=== PATIENT | male | born 1970 | race Caucasian/White ===

== ENCOUNTER 2016-03-25 15:05 | Outpatient (CLI) | payer OTHER | END 2016-03-25 15:06 | disposition home or self-care (01) | DX: G47.30 Sleep apnea, unspecified (principal); G47.8 Other sleep disorders; R06.83 Snoring; R51 Headache; G47.10 Hypersomnia, unspecified ==

== ENCOUNTER 2016-04-22 19:34 | Outpatient (CLI) | payer OTHER | END 2016-04-22 19:35 | disposition home or self-care (01) | DX: G47.33 Obstructive sleep apnea (adult) (pediatric) (principal) ==

== ENCOUNTER 2016-05-01 08:45 | Outpatient (CLI) | payer OTHER | END 2016-05-01 08:46 | disposition home or self-care (01) | DX: G47.33 Obstructive sleep apnea (adult) (pediatric) (principal) ==

== ENCOUNTER 2016-10-25 18:48 | Emergency (ER) | payer OTHER ==
[2016-10-25] MEDS ORDERED: ACETAMINOPHEN 325 MG TABLET PO STA (20:40)
--- NOTE | 2016-10-25 20:45 | ED Physician Documentation ---
History of Present Illness - Stated complaint Stated Complaint: NUMBNESS/ TINGLING LEFT ARM - Chief complaint Chief Complaint: General - History obtained from History obtained from: Patient - History of Present Illness Timing: Today, How many hours ago (4) Pain level max: 3 Pain level now: 2 Improved by: nothing Worsened by: nothing - Additonal information Additional information: Patient is a 45-year-old male who presents to the emergency department with left upper extremity pain earlier today, started approximately 4:30 PM today when he was doing the dishes. [place] a tightness and warmth in the upper part of the left upper extremity, then spread to the entire extremity then resolved. Entire episode lasted approximately 5 minutes. Was not accompanied by chest pain, shortness of breath, nausea, vomiting, dizziness. States has had a low- grade headache over the past week, rates this as a 2 out of 10 at max. Currently 1 out of 10. Denies any injuries. Denies any focal numbness or tingling. No trouble with balance. No trouble with speaking or vision. Has not had prior symptoms similarly. Review of Systems Ten Systems: 10 systems reviewed and negative Constitutional: denies: Fever, Chills Ears: denies: Ear pain Nose: denies: Rhinorrhea / runny nose, Congestion Throat: denies: Sore throat Cardiac: denies: Chest pain / pressure, Palpitations, Calf pain Respiratory: denies: Dyspnea, Cough GI: denies: Abdominal Pain, Nausea, Vomiting, Diarrhea Skin: denies: Rash Musculoskeletal: denies: Neck pain, Back pain Neurologic: denies: Focal weakness, Numbness, Headache PD PAST MEDICAL HISTORY - Past Medical History Past Medical History: No - Past Surgical History Past Surgical History: Yes - Present Medications Home Medications: Ambulatory Orders Medication Instructions Recorded Confirmed No Known Home Medications [No 10/25/16 10/25/16 Known Home Medications] - Allergies Allergies/Adverse Reactions: Allergies Allergy/AdvReac Type Severity Reaction Status Date / Time No Known Drug Allergies Allergy Verified 12/21/13 19:15 - Social History Does the pt smoke?: Yes Smoking Status: Former smoker Does the pt drink ETOH?: Yes Does the pt have substance abuse?: No - Immunizations Immunizations are current?: Yes - POLST Patient has POLST: No PD ED PE NORMAL - Vitals Vital signs reviewed: Yes - General General: Alert and oriented X 3, No acute distress - HEENT HEENT: Atraumatic, PERRL, EOMI, Ears normal, Moist mucous membranes, Pharynx benign - Neck Neck: Supple, no meningeal sign - Cardiac Cardiac: RRR - Respiratory Respiratory: No respiratory distress, Clear bilaterally - Abdomen Abdomen: Soft, Non tender, Non distended - Derm Derm: Warm and dry, No rash - Extremities Extremities: No edema, No calf tenderness / cord - Neuro Neuro: Alert and oriented X 3, 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, No motor deficit, No sensory deficit, Normal speech - Psych Psych: Normal mood, Normal affect - Free text exam Free text exam: NIHSS 0 Results - Vitals Vitals: Vital Signs - 24 hr 10/25/16 10/25/16 10/25/16 18:56 21:40 22:45 Temperature 36.9 C Heart Rate 79 67 78 Respiratory 14 16 16 Rate Blood Pressure 133/81 H 114/77 115/66 O2 Saturation 100 99 100 Oxygen O2 Source Room air - EKG (time done) 2053 Rate: Rate (enter#) (71) Rhythm: NSR [place]: Normal Intervals: Normal CO QRS: Normal Ischemia: Normal ST segments - Labs Labs: Laboratory Tests 10/25/16 10/25/16 10/25/16 20:47 20:47 20:47 WBC 6.2 RBC 4.77 Hgb 15.1 Hct 43.6 MCV 91.3 MCH 31.6 H MCHC 34.6 RDW 12.6 Plt Count 189 MPV 8.0 Neut # 3.4 Lymph # 1.9 [place] # 0.5 Eos # 0.3 Baso # 0.0 Absolute Nucleated RBC 0.00 Nucleated RBCs 0.0 Sodium 139 Potassium 4.0 Chloride 103 Carbon Dioxide 28 Anion Gap 8.0 BUN 14 Creatinine 0.7 Estimated GFR (MDRD) 123 Glucose 91 Calcium 9.3 Total Bilirubin 0.5 AST 20 ALT 23 Alkaline Phosphatase 60 Troponin I < 0.04 Total Protein 7.1 Albumin 4.4 Globulin 2.7 Albumin/Globulin Ratio 1.6 Lipase 27 10/25/16 22:18 WBC RBC Hgb Hct MCV MCH MCHC RDW Plt Count MPV Neut # Lymph # [place] # Eos # Baso # Absolute Nucleated RBC Nucleated RBCs Sodium Potassium Chloride Carbon Dioxide Anion Gap BUN Creatinine Estimated GFR (MDRD) Glucose Calcium Total Bilirubin AST ALT Alkaline Phosphatase Troponin I < 0.04 Total Protein Albumin Globulin Albumin/Globulin Ratio Lipase - Rads (name of study) cxr Radiology: Prelim report reviewed, EMP read contemporaneously, See rad report ( normal) PD MEDICAL DECISION MAKING - ED course Complexity details: reviewed results, re-evaluated patient, considered differential (No ST elevation [place], no aortic dissection, no PE, no tension pneumothorax, no aortic aneurysm), d/w patient, d/w family ED course: Patient is a 45-year-old male who presents to the emergency department with left upper extremity paresthesias earlier tonight. No focal weakness. No speech difficulties. No evidence of stroke. No evidence of cardiac etiology. Normal exam here. NIH stroke scale of 0. We will have him follow-up with his PCP for further evaluation and care. Patient counseled regarding signs and symptoms for which I believe and urgent re-evaluation would be necessary. Patient with good understanding of and agreement to plan and is comfortable going home at this time This document was made in part using voice recognition software. While efforts are made to proofread this document, sound alike and grammatical errors may occur. Patient also had a mild headache that resolved with Tylenol. No evidence of brain tumor, intracranial hemorrhage, subarachnoid hemorrhage. Head CT held at this time after discussion with patient. Departure - Departure Disposition: 01 Home, Self Care Clinical Impression: Paresthesia Condition: Good Instructions: ED Paraesthesias Follow-Up: Ariella Fitzgerald PA [Primary Care Provider] - Within 1 week Comments: Return if you worsen. The cause of your symptoms is unclear today. Discharge Date/Time: 10/25/16 22:52
[2016-10-25] MEDS ORDERED: ACETAMINOPHEN 325 MG TABLET PO ONE (20:47)
[2016-10-25 21:04] LABS: BASOPHILS % (AUTO) 0.5 %; EOSINOPHILS # (AUTO) 0.3 10^3/uL (0.0-0.7); EOSINOPHILS % (AUTO) 4.9 %; HCT - HEMATOCRIT 43.6 % (42.0-52.0); HGB - HEMOGLOBIN 15.1 g/dL (14.0-18.0); LYMPHOCYTES # (AUTO) 1.9 10^3/uL (1.5-3.5); MEAN CORPUSCULAR HEMOGLOBIN 31.6 pg (27.0-31.0); MEAN CORPUSCULAR HGB CONC 34.6 g/dL (32.0-36.0); MEAN CORPUSCULAR VOLUME 91.3 fL (80.0-94.0); MONOCYTES # (AUTO) 0.5 10^3/uL (0.0-1.0); MONOCYTES % (AUTO) 8.4 %; NEUTROPHILS # (AUTO) 3.4 10^3/uL (1.5-6.6); NEUTROPHILS % (AUTO) 55.2 %; RED BLOOD COUNT 4.77 10^6/uL (4.70-6.10); RED CELL DISTRIBUTION WIDTH 12.6 % (12.0-15.0); UNCORRECTED WHITE BLOOD COUNT 6.2 x10^3/uL; WHITE BLOOD COUNT 6.2 x10^3/uL (4.8-10.8)
[2016-10-25 21:11] LABS: ALBUMIN/GLOBULIN RATIO 1.6 (1.0-2.2); BILIRUBIN,TOTAL 0.5 mg/dL (0.2-1.0); CALCIUM 9.3 mg/dL (8.5-10.3); CREATININE 0.7 mg/dL (0.6-1.2); TOTAL PROTEIN 7.1 g/dL (6.7-8.2)
--- NOTE | 2016-10-25 21:44 | XRAY Preliminary Report ---
Exam: XR Chest 1 View IMPRESSION: Normal single view chest. [facility] SITE ID: [id number]
--- NOTE | 2016-10-25 21:47 | XRAY Report ---
EXAM: CHEST RADIOGRAPHY EXAM DATE: 10/25/2016 09:07 PM. CLINICAL HISTORY: Chest/L arm pain. COMPARISON: None. TECHNIQUE: 1 view. FINDINGS: Lungs/Pleura: No focal opacities evident. No pleural effusion. No pneumothorax. Mediastinum: Within exam limitations, cardiomediastinal contour is normal. Other: None. IMPRESSION: Normal single view chest. [facility] Referring Provider Line: [phone] SITE ID: [id number]
[2016-10-25 22:52] VITALS: BP 115/66
== END 2016-10-25 22:52 | disposition home or self-care (01) ==
LOC: ED 18:48
DX: R20.2 Paresthesia of skin (principal); M79.602 Pain in left arm; R51 Headache; Z87.891 Personal history of nicotine dependence
CPT/HCPCS: 36415; 71010; 80053; 83690; 84484; 85025; 93005; 99283; 99284; A9270

== ENCOUNTER 2017-09-14 13:13 | Emergency (ER) | payer BC, OTHER ==
[2017-09-14 13:25] VITALS: BP 130/73
--- NOTE | 2017-09-14 13:54 | ED Physician Documentation ---
PD HPI ABD PAIN - Stated complaint Stated Complaint: ABD PX - Chief complaint Chief Complaint: Abd Pain - History obtained from History obtained from: Patient - History of Present Illness Timing - onset: Other (He had a few episodes of diarrhea last night and some sweats last night and this morning developed constant right lower quadrant pain that radiates a little bit to the back and is associated with very mild nausea. He has never had this before. No history of abdominal surgeries. No chills or fevers.) Review of Systems Ten Systems: 10 systems reviewed and negative Constitutional: reports: Sweats. denies: Fever, Chills Throat: denies: Sore throat Cardiac: denies: Chest pain / pressure, Palpitations Respiratory: denies: Dyspnea, Cough PD PAST MEDICAL HISTORY - Past Medical History Past Medical History: No - Past Surgical History Past Surgical History: Yes - Present Medications Home Medications: Ambulatory Orders Medication Instructions Recorded Confirmed Lactobacillus Acidophilus 1 each PO 09/14/17 [Acidophilus] Multivitamin [Multiple Vitamins] 09/14/17 - Allergies Allergies/Adverse Reactions: Allergies Allergy/AdvReac Type Severity Reaction Status Date / Time No Known Drug Allergies Allergy Verified 09/14/17 13:26 - Living Situation Living Situation: reports: With spouse/s.o. - Social History Does the pt smoke?: Yes Smoking Status: Former smoker Does the pt drink ETOH?: Yes Does the pt have substance abuse?: No - Family History Family history: reports: Non contributory - Immunizations Immunizations are current?: Yes - POLST Patient has POLST: No PD ED PE NORMAL - Vitals Vital signs reviewed: Yes - General General: Alert and oriented X 3, No acute distress - HEENT HEENT: PERRL, EOMI - Neck Neck: Supple, no meningeal sign, No bony TTP - Cardiac Cardiac: RRR, No murmur - Respiratory Respiratory: No respiratory distress, Clear bilaterally - Abdomen Abdomen: Normal bowel sounds, Soft, Other (Focal tenderness in the right lower quadrant with positive Rovsing sign) - Back Back: No CVA TTP, No spinal TTP - Derm Derm: Normal color, Warm and dry - Extremities Extremities: No edema, No calf tenderness / cord - Neuro Neuro: Alert and oriented X 3, Normal speech Results - Vitals Vitals: Vital Signs - 24 hr 09/14/17 13:22 Temperature 36.7 C Heart Rate 71 Respiratory 16 Rate Blood Pressure 130/73 O2 Saturation 97 Oxygen O2 Source Room air - Labs Labs: Laboratory Tests 09/14/17 09/14/17 09/14/17 13:55 14:07 14:07 WBC 7.5 RBC 5.00 Hgb 16.1 Hct 46.2 MCV 92.4 MCH 32.2 H MCHC 34.8 RDW 12.4 Plt Count 196 MPV 8.0 Neut # (Auto) 5.5 Lymph # (Auto) 1.3 L [place] # (Auto) 0.5 Eos # (Auto) 0.2 Baso # (Auto) 0.0 Absolute Nucleated RBC 0.00 Nucleated RBC % 0.0 Sodium 136 Potassium 3.9 Chloride 102 Carbon Dioxide 26 Anion Gap 8.0 BUN 14 Creatinine 0.9 Estimated GFR (MDRD) 92 Glucose 98 Calcium 9.4 Total Bilirubin 0.8 AST 23 ALT 20 Alkaline Phosphatase 61 Total Protein 7.8 Albumin 4.8 Globulin 3.0 Albumin/Globulin Ratio 1.6 Lipase 44 Urine Color YELLOW Urine Clarity CLEAR Urine pH 7.0 Ur Specific [place] <=1.005 Urine Protein NEGATIVE Urine Glucose (UA) NEGATIVE Urine Ketones NEGATIVE Urine Occult Blood NEGATIVE Urine Nitrite NEGATIVE Urine Bilirubin NEGATIVE Urine Urobilinogen 0.2 (NORMAL) Ur Leukocyte Esterase NEGATIVE Ur Microscopic Review NOT INDICATED Urine Culture Comments NOT INDICATED - Rads (name of study) CT A/P Radiology: EMP read contemporaneously (normal) PD MEDICAL DECISION MAKING - ED course ED course: History is concerning for appendicitis, but normal white count without left shift and negative CT suggests this might be muscular. Watchful waiting was advised. - Sepsis Event Vital Signs: Vital Signs - 24 hr 09/14/17 13:22 Temperature 36.7 C Heart Rate 71 Respiratory 16 Rate Blood Pressure 130/73 O2 Saturation 97 Oxygen O2 Source Room air Departure - Departure Disposition: 01 Home, Self Care Clinical Impression: Abdominal pain Qualifiers: Abdominal location: right lower quadrant Qualified Code(s): R10.31 - Right lower quadrant pain Condition: Good Record reviewed to determine appropriate education?: Yes Instructions: ED Abdominal Pain Unkn Cause
[2017-09-14 14:00] LABS: BILIRUBIN,URINE NEGATIVE (NEGATIVE); GLUCOSE, URINE (UA) NEGATIVE (NEGATIVE); KETONES,URINE (UA) NEGATIVE (NEGATIVE); LEUKOCYTE ESTERASE, URINE NEGATIVE (NEGATIVE); NITRITE,URINE NEGATIVE (NEGATIVE); OCCULT BLOOD,URINE NEGATIVE (NEGATIVE); PROTEIN,URINE NEGATIVE (NEGATIVE); UROBILINOGEN,URINE 0.2 (NORMAL) E.U./dL (NORMAL)
[2017-09-14 14:02] LABS: CLARITY,URINE CLEAR (CLEAR)
[2017-09-14 14:14] LABS: BASOPHILS % (AUTO) 0.5 %; EOSINOPHILS # (AUTO) 0.2 10^3/uL (0.0-0.7); EOSINOPHILS % (AUTO) 3.2 %; HGB - HEMOGLOBIN 16.1 g/dL (14.0-18.0); LYMPHOCYTES # (AUTO) 1.3 10^3/uL (1.5-3.5); LYMPHOCYTES % (AUTO) 16.9 %; MEAN CORPUSCULAR HEMOGLOBIN 32.2 pg (27.0-31.0); MEAN CORPUSCULAR HGB CONC 34.8 g/dL (32.0-36.0); MEAN CORPUSCULAR VOLUME 92.4 fL (80.0-94.0); MONOCYTES # (AUTO) 0.5 10^3/uL (0.0-1.0); NEUTROPHILS # (AUTO) 5.5 10^3/uL (1.5-6.6); NEUTROPHILS % (AUTO) 73.4 %; PLT - PLATELET COUNT 196 10^3/uL (130-450); RED CELL DISTRIBUTION WIDTH 12.4 % (12.0-15.0); WHITE BLOOD COUNT 7.5 x10^3/uL (4.8-10.8)
[2017-09-14] MEDS ORDERED: IOPAMIDOL-300 100 ML VIAL ONE (14:21)
[2017-09-14 14:26] LABS: ALBUMIN 4.8 g/dL (3.2-5.5); ALBUMIN/GLOBULIN RATIO 1.6 (1.0-2.2); BILIRUBIN,TOTAL 0.8 mg/dL (0.2-1.0); CALCIUM 9.4 mg/dL (8.5-10.3); CREATININE 0.9 mg/dL (0.6-1.2); TOTAL PROTEIN 7.8 g/dL (6.7-8.2)
[2017-09-14] MEDS ORDERED: IOPAMIDOL-300 100 ML VIAL IVP ONE (15:22)
--- NOTE | 2017-09-14 15:54 | CT Report ---
Procedure Date: 09/14/2017 Accession Number: [id number] / [id number] Procedure: CT - Abdomen/Pelvis W/ CPT Code: FULL RESULT: EXAM: CT ABDOMEN AND PELVIS EXAM DATE: 09/14/2017 03:25 PM. CLINICAL HISTORY: Right lower quadrant pain COMPARISONS: None. TECHNIQUE: Routine helical CT imaging was performed through the abdomen and pelvis. IV contrast: 100 mL Isovue-300. Enteric contrast: No. Reconstructions: Coronal and sagittal. In accordance with CT protocol optimization, one or more of the following dose reduction techniques were utilized for this exam: automated exposure control, adjustment of mA and/or KV based on patient size, or use of iterative reconstructive technique. FINDINGS: Lung Bases: Clear. Liver: Normal. No focal hepatic lesion. Gallbladder/Bile Ducts: Unremarkable. No visualized stones or biliary ductal dilatation. Spleen: Normal. Pancreas: Normal. Adrenal Glands: Normal. Kidneys and Ureters: Normal. No stones, hydronephrosis, or hydroureter. Peritoneal Cavity/Bowel: No evidence for bowel obstruction or acute inflammatory process. The appendix is not competently seen. No cecal wall thickening, pericecal inflammatory fat stranding, or other secondary evidence for acute appendicitis. No free fluid, pneumoperitoneum, or adenopathy. Pelvic Organs: The bladder and visualized pelvic organs are within normal limits. Vasculature: Retroaortic left renal vein, a normal variant. Bones: Mild degenerative changes within the spine. No acute bony abnormality. Other: Tiny fat-containing umbilical hernia, without evidence for inflammation. IMPRESSION: No acute inflammatory obstructive process identified to explain right lower quadrant pain. [facility]
== END 2017-09-14 16:33 | disposition home or self-care (01) ==
LOC: ED 13:13
DX: R10.31 Right lower quadrant pain (principal); Z87.891 Personal history of nicotine dependence
CPT/HCPCS: 36415; 74177; 80053; 81003; 83690; 85025; 99283; Q9967; 81001; 87086

== ENCOUNTER 2019-08-02 12:06 | Outpatient (CLI) | payer OTHER | END 2019-08-02 12:07 | disposition home or self-care (01) | LOC: DI 12:06 | PROVIDERS: ATTEND Family Medicine | DX: Z53.9 Procedure and treatment not carried out, unspecified reason (principal) ==

== ENCOUNTER 2019-08-03 11:42 | Outpatient (CLI) | payer OTHER ==
--- NOTE | 2019-08-03 14:18 | XRAY Report ---
PROCEDURE: Finger(s) LT INDICATIONS: PAIN IN LFT HAND LEFT FINGERS TECHNIQUE: AP hand, 3 views of the second finger(s) acquired. COMPARISON: None FINDINGS: Bones: No fractures or dislocations. No suspicious bony lesions. Soft tissues: No suspicious soft tissue calcifications. Slight appearance of soft tissue asymmetry surrounding the distal tuft of the second digit. IMPRESSION: Slight second digit soft tissue asymmetry as above. It is overall nonspecific on the basis of this ex am. This could represent an area of infection/inflammation or mass lesion. However, if concern persis ts, MRI finger is recommended for further evaluation. Reviewed by: Roxane Romo MD on 08/03/2019 2:16 PM PDT Approved by: Roxane Romo MD on 08/03/2019 2:16 PM PDT Station ID: [id number]
== END 2019-08-03 11:43 | disposition home or self-care (01) ==
LOC: DI 11:42
PROVIDERS: ATTEND Family Medicine
DX: R93.6 Abnormal findings on diagnostic imaging of limbs (principal)
CPT/HCPCS: 73140